=== PATIENT | male | born 1985 | race Caucasian/White ===

== ENCOUNTER 2017-08-28 17:58 | Emergency (ER) | payer BC ==
[2017-08-28 19:07] VITALS: O2SAT 98
--- NOTE | 2017-08-28 19:39 | ERPHSYRPT ---
- History of Present Illness Time Seen by Provider: 08/28/17 19:25 Source: patient Exam Limitations: no limitations Patient Subjective Stated Complaint: pt states he lacerated right lateral dorsal hand on apiece of glass this afternoon. Triage Nursing Assessment: pt pink, warm, dry. 2cm laceration noted to right dorsal lateral hand. bleeding controlled. superficial laceration. Physician History: This is a 32-year-old white male who arrives with complaint of a laceration to his dorsal right hand on a piece of glass from a mirror at work. He states this occurred at approximately 5:30 PM. Patient has no movement or sensory deficits he has approximately 2 cm laceration to the dorsal right hand. Past medical history negative Occurred: just prior to arrival (5:30 PM) Method of Injury: other (lacerated on piece of glass at work) Extremities Pain Location: hand: right Modifying Factors: Improves With: nothing Associated Symptoms: none Allergies/Adverse Reactions: No Known Drug Allergies Allergy (Unverified 08/28/17 19:06) Home Medications: No Reportable Medications [No Reported Medications] 08/28/17 [History] Unobtainable [Unobtainable] 08/28/17 [History] Hx Tetanus, Diphtheria Vaccination/Date Given: Yes (up to date) Hx Influenza Vaccination/Date Given: No Hx Pneumococcal Vaccination/Date Given: No Immunizations Up to Date: Yes - Review of Systems Constitutional: No Fever, No Chills Eyes: No Symptoms Ears, Nose, & Throat: No Symptoms Respiratory: No Cough, No Dyspnea Cardiac: No Chest Pain, No Edema, No Syncope Abdominal/Gastrointestinal: No Abdominal Pain, No Nausea, No Vomiting, No Diarrhea Genitourinary Symptoms: No Dysuria Musculoskeletal: No Back Pain, No Neck Pain Skin: Other (2 cm laceration dorsal right hand) Neurological: No Dizziness, No Focal Weakness, No Sensory Changes Psychological: No Symptoms Endocrine: No Symptoms All Other Systems: Reviewed and Negative - Past Medical History Pertinent Past Medical History: No - Past Surgical History Past Surgical History: No - Social History Smoking Status: Never smoker Exposure to second hand smoke: No Drug Use: none Patient Lives Alone: No - Nursing Vital Signs Nursing Vital Signs: Initial Vital Signs Temperature 98.0 F 08/28/17 18:47 Pulse Rate 88 08/28/17 18:47 Respiratory Rate 16 08/28/17 18:47 Blood Pressure 137/79 08/28/17 18:47 O2 Sat by Pulse Oximetry 97 08/28/17 18:47 Pain Scale Pain Intensity 0 - Physical Exam General Appearance: alert Eyes, Ears, Nose, Throat Exam: moist mucous membranes Neck Exam: non-tender, supple Cardiovascular/Respiratory Exam: chest non-tender, normal breath sounds, regular rate/rhythm, no respiratory distress Abdominal Exam: non-tender, No guarding Back Exam: normal inspection, No vertebral tenderness Shoulder Exam: normal inspection, non-tender, no evidence of injury, normal ROM Elbow/Forearm Exam: normal inspection, non-tender, no evidence of injury, normal ROM Wrist Exam: normal inspection, non-tender, no evidence of injury, normal ROM Hand Exam: normal ROM, laceration (2 cm laceration dorsal right hand) Neuro/Tendon Exam: normal sensation, normal motor functions Mental Status Exam: alert, oriented x 3, cooperative Skin Exam: other (2 cm laceration dorsal right hand) SpO2 Interpretation: normal (98%) SpO2: 98 Oxygen Delivery: Room Air - Course Nursing assessment & vital signs reviewed: Yes Ordered Tests: Active Orders 24 hr Category Date Time Status Wound Care STAT Care 08/28/17 19:28 Active Wound Care STAT Care 08/28/17 19:34 Active - Progress Progress: improved Progress Note: 08/28/17 19:37 32-year-old white male with 2 cm laceration to the dorsal right hand he states he cut the hand on a piece of glass at work patient has no foreign bodies on examination he has full range of motion to the right hand good capillary refill all fingers sensation intact to all fingers radial and ulnar pulses intact 2 over 4. Patient's tetanus is up-to-date with last tetanus 2 years ago. Will have nurse clean the wound and apply Dermabond. - Departure Time of Disposition: 19:38 Departure Disposition: Home Clinical Impression: Laceration of right hand Qualifiers: Encounter type: initial encounter Foreign body presence: without foreign body Qualified Code(s): S61.411A - Laceration without foreign body of right hand, initial encounter Condition: Fair Critical Care Time: No Referrals: [facility] [Primary Care Provider] - Instructions: Care for a Laceration After Repair, Laceration Repair With Dermabond Additional Instructions: Keep the area clean and dry. Do not apply traction to the area. Follow-up with your family doctor/company doctor or return if problems. Return for acute distress or for severe symptoms.
[2017-08-28 20:04] VITALS: BP 116/68; PULSE 78
== END 2017-08-28 20:05 | disposition home or self-care (01) ==
LOC: ED 17:58
PROC: 0HQFXZZ Repair Right Hand Skin, External Approach (ICD-10-PCS; principal; 2017-08-28)
DX: S61.411A Laceration without foreign body of right hand, initial encounter (principal); W25.XXXA Contact with sharp glass, initial encounter; Y92.64 Mine or pit as the place of occurrence of the external cause; Y99.0 Civilian activity done for income or pay
CPT/HCPCS: 12001; 99282; 99284

== ENCOUNTER 2020-05-25 05:41 | Emergency (ER) | payer BC ==
--- NOTE | 2020-05-25 06:17 | ERPHSYRPT ---
- History of Present Illness Historian: patient Exam Limitations: no limitations Patient Subjective Stated Complaint: "I've had flank pain and diarrhea since sunday. I've been up all night." Triage Nursing Assessment: 34 y/o white male presented alert et oriented x3 answering questions appropriately. Pt reported bilateral flank pain, nausea/vomiting, and diarrhea onset two days prior to arrival. Pt reported having a hida scan roughly 5 years ago resulting with poor function of the gallbladder without resulting surgery. Pt ambulated to the room without complications. Pupils 3mm reactive. oral mucosa pink/moist. EENT without complaints. Skin pink/warm/dry. Heart tones regular/clear. Lungs clear with adequate airflwo. Abdomen round and soft without palpable distent ion/organomegaly. Bowel sounds hyperactive in all quadrants. Radial pulses equal bilateral. Timing/Duration: day(s) (2) Activities at Onset: none Quality: fullness, pressure, sharpness Abdominal Pain Onset Location: RUQ, flank (Lateral) Modifying Factors: Improves With: vomiting Associated Symptoms: diarrhea, loss of appetite, nausea, vomiting Previous symptoms: same symptoms as today Hx Tetanus, Diphtheria Vaccination/Date Given: Yes (up to date) Hx Influenza Vaccination/Date Given: No Hx Pneumococcal Vaccination/Date Given: No <DAVID PATTON - Last Filed: 05/25/20 06:46> <TOM JOE - Last Filed: 05/25/20 13:02> - History of Present Illness Time Seen by Provider: 05/25/20 06:05 Physician History: This is a 34-year-old white male who presents with right-sided abdominal pain, bilateral flank pain, nausea vomiting diarrhea bloating belching gassy symptoms for the last 2 days. Patient had similar episodes several years ago and ultimately underwent HIDA scan which showed poorly functioning gallbladder. Patient never had the gallbladder removed. The last several years intermittently he would have minor episodes that were brief. His symptoms are becoming more constant. Patient has no known drug allergies and takes no medications daily. (DAVID PATTON) Allergies/Adverse Reactions: No Known Drug Allergies Allergy (Unverified 05/25/20 05:48) Travel Risk - International Travel Have you traveled outside of the country in past 3 weeks: No - Coronavirus Screening Are you exhibiting any of the following symptoms?: No Close contact with a COVID-19 positive Pt in past 14-21 Days: No <DAVID PATTON SalLore - Last Filed: 05/25/20 06:46> - Review of Systems Constitutional: No Symptoms Eyes: No Symptoms Ears, Nose, & Throat: No Symptoms Respiratory: No Symptoms Cardiac: No Symptoms Abdominal/Gastrointestinal: Abdominal Pain, Nausea, Vomiting, Diarrhea Genitourinary Symptoms: Flank Pain (Bilateral) Musculoskeletal: No Symptoms Skin: No Symptoms Neurological: No Symptoms Psychological: No Symptoms Endocrine: No Symptoms Hematologic/Lymphatic: No Symptoms, Easy Bruising All Other Systems: Reviewed and Negative <PATTONDAVID SalLore - Last Filed: 05/25/20 06:46> - Past Medical History Pertinent Past Medical History: No Neurological History: No Pertinent History ENT History: No Pertinent History Cardiac History: No Pertinent History Respiratory History: No Pertinent History Endocrine Medical History: No Pertinent History Musculoskeletal History: No Pertinent History GI Medical History: Gallbladder Disease History: No Pertinent History Psycho-Social History: No Pertinent History Male Reproductive Disorders: No Pertinent History - Past Surgical History Past Surgical History: No Neuro Surgical History: No Pertinent History Cardiac: No Pertinent History Respiratory: No Pertinent History Gastrointestinal: No Pertinent History Genitourinary: No Pertinent History Musculoskeletal: No Pertinent History Male Surgical History: No Pertinent History - Social History Smoking Status: Never smoker Exposure to second hand smoke: No Drug Use: none Patient Lives Alone: No <DAVID PATTON SalLore - Last Filed: 05/25/20 06:46> - Physical Exam General Appearance: no apparent distress, alert, anxiety Eye Exam: PERRL/EOMI, post op pupil defect (L) Ears, Nose, Throat Exam: normal ENT inspection, moist mucous membranes Neck Exam: normal inspection, non-tender, supple, full range of motion Respiratory Exam: normal breath sounds, lungs clear, airway intact, No chest tenderness, No respiratory distress Cardiovascular Exam: regular rate/rhythm, normal heart sounds, normal peripheral pulses Gastrointestinal/Abdomen Exam: soft, normal bowel sounds, tenderness (Right upper quadrant), No guarding Rectal Exam: deferred Back Exam: normal inspection, normal range of motion, CVA tenderness (Bilateral), No vertebral tenderness Extremity Exam: normal inspection, normal range of motion, pelvis stable Neurologic Exam: alert, oriented x 3, cooperative, traffic law attorney II-XII nml as tested, normal mood/affect, nml cerebellar function, nml station & gait, sensation nml Skin Exam: normal color, warm, dry Lymphatic Exam: adenopathy SpO2 Interpretation: normal SpO2: 95 O2 Delivery: Room Air <DAVID PATTON - Last Filed: 05/25/20 06:46> - Nursing Vital Signs Nursing Vital Signs: Initial Vital Signs Temperature 97.8 F 05/25/20 05:42 Pulse Rate 76 05/25/20 05:42 Respiratory Rate 16 05/25/20 05:42 Blood Pressure 134/97 05/25/20 05:42 O2 Sat by Pulse Oximetry 95 05/25/20 05:42 Pain Scale Pain Intensity 2 Ordered Tests: Active Orders 24 hr Category Date Time Status IV Insertion STAT Care 05/25/20 06:19 Completed ABDOMEN AND PELVIS W/0 CONTRAS [CT] Stat Exams 05/25/20 06:20 Completed GALLBLADDER [US] Stat Exams 05/25/20 08:56 Completed AMYLASE Stat Lab 05/25/20 06:15 Completed CBC W DIFF Stat Lab 05/25/20 06:19 Completed CMP Stat Lab 05/25/20 06:15 Completed LIPASE Stat Lab 05/25/20 06:15 Completed Lactic Acid Stat Lab 05/25/20 06:19 Completed UA W/RFX UR CULTURE Stat Lab 05/25/20 06:15 Completed Medication Summary Discontinued Medications Generic Name Dose Route Start Last Admin Trade Name Freq PRN Reason Stop Dose Admin Dicyclomine HCl 20 mg 05/25/20 10:00 05/25/20 08:58 Bentyl 20 Mg PO 06/24/20 09:59 20 mg QID JOSE E Administration Dicyclomine HCl Confirm 05/25/20 08:57 Bentyl 20 Mg Administered 05/25/20 08:58 Dose 20 mg .ROUTE .STK-MED ONE Fentanyl Citrate 100 mcg 05/25/20 08:07 05/25/20 08:11 Sublimaze 100 Mcg/2 Ml IV 05/25/20 08:08 100 mcg STAT ONE Administration Fentanyl Citrate Confirm 05/25/20 08:09 Sublimaze 100 Mcg/2 Ml Administered 05/25/20 08:10 Dose 100 mcg .ROUTE .STK-MED ONE Hydromorphone HCl 1 mg 05/25/20 06:19 05/25/20 06:27 Hydromorphone 1 Mg/Ml Ampule IV 05/25/20 06:20 1 mg STAT ONE Administration Hydromorphone HCl Confirm 05/25/20 06:26 Hydromorphone 1 Mg/Ml Ampule Administered 05/25/20 06:27 Dose 1 mg .ROUTE .STK-MED ONE Sodium Chloride 1,000 mls @ 999 mls/hr 05/25/20 06:19 05/25/20 07:43 Sodium Chloride 0.9% 1000 Ml IV 05/25/20 07:19 Infused .Q1H1M STA Infusion Sodium Chloride Confirm 05/25/20 06:26 Sodium Chloride 0.9% 1000 Ml Administered 05/25/20 06:27 Dose 1,000 mls @ ud .ROUTE .STK-MED ONE Ketorolac Tromethamine 30 mg 05/25/20 07:38 05/25/20 07:40 Toradol 30 Mg Injection IV 05/25/20 07:39 30 mg STAT ONE Administration Ketorolac Tromethamine Confirm 05/25/20 07:39 Toradol 30 Mg Injection Administered 05/25/20 07:40 Dose 30 mg .ROUTE .STK-MED ONE Ondansetron HCl 4 mg 05/25/20 06:19 05/25/20 06:27 Zofran 4 Mg/2 Ml Vial IV 05/25/20 06:20 4 mg STAT ONE Administration Ondansetron HCl Confirm 05/25/20 06:26 Zofran 4 Mg/2 Ml Vial Administered 05/25/20 06:27 Dose 4 mg .ROUTE .STK-MED ONE Lab/Rad Data: Laboratory Result Diagrams 05/25/20 06:19 05/25/20 06:15 Laboratory Results 05/25/20 05/25/20 05/25/20 Range/Units 06:19 06:19 06:15 WBC 8.6 (4.0-10.5) K/mm3 RBC 5.54 (4.1-5.6) M/mm3 Hgb 16.9 (12.5-18.0) gm/dl Hct 49.6 (42-50) % MCV 89.5 (78-100) fl MCH 30.5 (26-32) pg MCHC 34.1 (32-36) g/dl RDW 13.0 (11.5-14.0) % Plt Count 289 (150-450) K/mm3 MPV 10.6 (7.5-11.0) fl Gran % 56.2 (36.0-66.0) % Eos # (Auto) 0.82 H (0-0.5) Absolute Lymphs (auto) 2.54 (1.0-4.6) Absolute Monos (auto) 0.41 (0.0-1.3) Lymphocytes % 29.4 (24.0-44.0) % Monocytes % 4.7 (0.0-12.0) % Eosinophils % 9.5 H (0.00-5.0) % Basophils % 0.2 (0.0-0.4) % Absolute Granulocytes 4.85 (1.4-6.9) Basophils # 0.02 (0-0.4) Sodium (137-145) mmol/L Potassium (3.5-5.1) mmol/L Chloride (98-107) mmol/L Carbon Dioxide (22-30) mmol/L Anion Gap (5-15) MEQ/L BUN (9-20) mg/dL Creatinine (0.66-1.25) mg/dL Estimated GFR ML/MIN Glucose (74-106) mg/dL Lactic Acid 1.5 (0.4-2.0) Calcium (8.4-10.2) mg/dL Total Bilirubin (0.2-1.3) mg/dL AST (17-59) U/L ALT (0-50) U/L Alkaline Phosphatase (38-126) U/L Serum Total Protein (6.3-8.2) g/dL Albumin (3.5-5.0) g/dL Amylase (30-110) U/L Lipase (23-300) U/L Urine Color YELLOW (YELLOW) Urine Appearance CLEAR (CLEAR) Urine pH 5.0 (5-6) Ur Specific [place] 1.020 (1.005-1.025) Urine Protein NEGATIVE (Negative) Urine Ketones NEGATIVE (NEGATIVE) Urine Blood NEGATIVE (0-5) Leon/ul Urine Nitrite NEGATIVE (NEGATIVE) Urine Bilirubin NEGATIVE (NEGATIVE) Urine Urobilinogen NEGATIVE (0-1) mg/dL Ur Leukocyte Esterase NEGATIVE (NEGATIVE) Urine WBC (Auto) NONE (0-5) /HPF Urine RBC (Auto) NONE (0-2) /HPF U Epithel Cells (Auto) NONE (FEW) /HPF Urine Bacteria (Auto) NONE (NEGATIVE) /HPF Urine Mucus (Auto) SLIGHT (NEGATIVE) /HPF Urine Culture Reflexed NO (NO) Urine Glucose NEGATIVE (NEGATIVE) mg/dL 05/25/20 Range/Units 06:15 WBC (4.0-10.5) K/mm3 RBC (4.1-5.6) M/mm3 Hgb (12.5-18.0) gm/dl Hct (42-50) % MCV (78-100) fl MCH (26-32) pg MCHC (32-36) g/dl RDW (11.5-14.0) % Plt Count (150-450) K/mm3 MPV (7.5-11.0) fl Gran % (36.0-66.0) % Eos # (Auto) (0-0.5) Absolute Lymphs (auto) (1.0-4.6) Absolute Monos (auto) (0.0-1.3) Lymphocytes % (24.0-44.0) % Monocytes % (0.0-12.0) % Eosinophils % (0.00-5.0) % Basophils % (0.0-0.4) % Absolute Granulocytes (1.4-6.9) Basophils # (0-0.4) Sodium 139 (137-145) mmol/L Potassium 3.9 (3.5-5.1) mmol/L Chloride 101 (98-107) mmol/L Carbon Dioxide 28 (22-30) mmol/L Anion Gap 13.7 (5-15) MEQ/L BUN 11 (9-20) mg/dL Creatinine 0.78 (0.66-1.25) mg/dL Estimated GFR > 60.0 ML/MIN Glucose 111 H (74-106) mg/dL Lactic Acid (0.4-2.0) Calcium 9.6 (8.4-10.2) mg/dL Total Bilirubin 0.90 (0.2-1.3) mg/dL AST 36 (17-59) U/L ALT 53 H (0-50) U/L Alkaline Phosphatase 80 (38-126) U/L Serum Total Protein 8.9 H (6.3-8.2) g/dL Albumin 5.0 (3.5-5.0) g/dL Amylase 104 (30-110) U/L Lipase 70 (23-300) U/L Urine Color (YELLOW) Urine Appearance (CLEAR) Urine pH (5-6) Ur Specific [place] (1.005-1.025) Urine Protein (Negative) Urine Ketones (NEGATIVE) Urine Blood (0-5) Leon/ul Urine Nitrite (NEGATIVE) Urine Bilirubin (NEGATIVE) Urine Urobilinogen (0-1) mg/dL Ur Leukocyte Esterase (NEGATIVE) Urine WBC (Auto) (0-5) /HPF Urine RBC (Auto) (0-2) /HPF U Epithel Cells (Auto) (FEW) /HPF Urine Bacteria (Auto) (NEGATIVE) /HPF Urine Mucus (Auto) (NEGATIVE) /HPF Urine Culture Reflexed (NO) Urine Glucose (NEGATIVE) mg/dL <DAVID PATTON - Last Filed: 05/25/20 06:46> - Progress Progress: pain not gone completely Counseled pt/family regarding: lab results, diagnosis, need for follow-up, rad results <TOM JOE - Last Filed: 05/25/20 13:02> - Progress Progress Note: 05/25/20 06:46 Patient signed out to Dr. Cordova. He will be assumed and accepts care of this patient. I reviewed test and x-rays that were performed but results pending. (DAVID PATTON) 05/25/20 07:32 Assumed care of pt at 7AM. 34 yo wm w RUQ pain. Pt has a h/o RUQ pain due to a nonfunctioning gallbladder w HIDA scan demonstrating 5% function per hx. Pt scheduled to have cholo in past but did not go through the procedure. CT ab- pelvis w distended colon c/w diarrhea. Labs wnl. 05/25/20 07:40 Pain improved to a 6 w 1mg IV dilaudid that Dr. Patton gave him. US 2017 w normal gallbladder and HIDA w 5% activity. 05/25/20 08:53 RUQ US neg per tech. 100umg Fentanyl w mild improvement. 05/25/20 13:00 Pt given 20mg po Bentyl before discharge. (TOM JOE) <DAVID PATTON - Last Filed: 05/25/20 06:46> - Departure Departure Disposition: Home Critical Care Time: No <TOM JOE - Last Filed: 05/25/20 13:02> - Departure Clinical Impression: Abdominal pain in male Condition: Stable Referrals: KRISTEN RAMIREZ [Primary Care Provider] - Instructions: Acute Abdomen (Belly Pain), Adult (DC) Additional Instructions: Follow up with your family MD in 1-2 days Bentyl as needed for pain Return to ER for increasing pain or temperature greater than 100.5 Forms: Work/School Release Form Prescriptions: Dicyclomine HCl 20 mg [Bentyl 20 mg] 20 mg PO Q8H PRN PRN #14 tablet PRN Reason: Pain
[2020-05-25] MEDS ORDERED: Hydromorphone 1 mg/ml Ampule ONE (06:26)
[2020-05-25] MEDS ORDERED: Zofran 4 MG/2 ML VIAL ONE (06:26)
[2020-05-25] MEDS ORDERED: Sodium Chloride 0.9% 1000 ML 1,000 ML ONE (06:26)
[2020-05-25] MEDS: Hydromorphone 1 mg/ml Ampule IV ONE (06:27)
[2020-05-25] MEDS: Zofran 4 MG/2 ML VIAL IV ONE (06:27)
[2020-05-25] MEDS: Sodium Chloride 0.9% 1000 ML 1,000 ML IV STA (06:28)
[2020-05-25 06:36] LABS: Absolute Neutrophil Ct (ANC) 4.85 (1.4-6.9); BASOPHIL % 0.2 % (0.0-0.4); Basophil (Absolute #) 0.02 (0-0.4); Eosinophil % 9.5 % (0.00-5.0); Eosinophil (Absolute #) 0.82 (0-0.5); Hematocrit 49.6 % (42-50); Hemoglobin 16.9 gm/dl (12.5-18.0); Lymphocyte (Absolute #) 2.54 (1.0-4.6); Lymphocytes % 29.4 % (24.0-44.0); Mean Cell Volume 89.5 fl (78-100); Mean Corpuscular Hemoglobin 30.5 pg (26-32); Mean Corpuscular Hgb Concent. 34.1 g/dl (32-36); Mean Platelet Volume 10.6 fl (7.5-11.0); Monocyte (Absolute #) 0.41 (0.0-1.3); Monocytes % 4.7 % (0.0-12.0); Neutrophil % 56.2 % (36.0-66.0); Platelet Count 289 K/mm3 (150-450); Red Blood Count 5.54 M/mm3 (4.1-5.6); White Blood Count 8.6 K/mm3 (4.0-10.5)
[2020-05-25 06:42] LABS: Appearance CLEAR (CLEAR); Bilirubin NEGATIVE (NEGATIVE); Blood NEGATIVE Ery/ul (0-5); Glucose NEGATIVE (NEGATIVE); Ketones NEGATIVE (NEGATIVE); Leukocyte Esterase NEGATIVE (NEGATIVE); Mucus SLIGHT /HPF (NEGATIVE); Nitrite NEGATIVE (NEGATIVE); Protein,Urine Dip NEGATIVE (Negative); Urobilinogen NEGATIVE mg/dL (0-1)
[2020-05-25 06:49] LABS: ALKALINE PHOSPHATASE 80 U/L (38-126); AMYLASE 104 U/L (30-110); ANION GAP 13.7 MEQ/L (5-15); BLOOD UREA NITROGEN 11 mg/dL (9-20); CHLORIDE 101 mmol/L (98-107); Calcium 9.6 mg/dL (8.4-10.2); Carbon Dioxide 28 mmol/L (22-30); Creatinine 1 0.78 mg/dL (0.66-1.25); Glucose 111 mg/dL (74-106); LIPASE 70 U/L (23-300); Potassium 3.9 mmol/L (3.5-5.1); SGOT/AST 36 U/L (17-59); SGPT/ALT 53 U/L (0-50); SODIUM 139 mmol/L (137-145); Total Protein 8.9 g/dL (6.3-8.2)
[2020-05-25] MEDS ORDERED: TORAdol 30 mg Injection ONE (07:39)
[2020-05-25] MEDS: TORAdol 30 mg Injection IV ONE (07:40)
[2020-05-25] MEDS ORDERED: SUBLIMAZE 100 MCG/2 ML ONE (08:09)
[2020-05-25] MEDS: SUBLIMAZE 100 MCG/2 ML IV ONE (08:11)
--- NOTE | 2020-05-25 08:37 | XRAY ---
Indication: Bilateral flank pain, nausea, vomiting, and diarrhea. Multiple contiguous axial images obtained through the abdomen and pelvis without contrast as ordered. Comparison: None Lung bases demonstrates minimal bilateral dependent atelectasis without infiltrate or effusion. Heart is not enlarged. Stomach is distended with food/fluid. Noncontrasted stomach and bowel loops appear nonobstructed. Normal appendix. Minimal fluid distended colon with fluid leveling throughout favoring clinically reported diarrhea. A few sigmoid diverticulosis. No free fluid/air. Remaining liver, gallbladder, pancreas, spleen, adrenal glands, kidneys, ureters, bladder, and aorta appear unremarkable for noncontrast exam. Osseous structures intact. No ventral or inguinal hernias. Impression: 1. Colonic diarrhea and minimal sigmoid diverticulosis. 2. Remaining CT abdomen/pelvis without contrast exam is negative.
[2020-05-25] MEDS ORDERED: BENTYL 20 MG ONE (08:57)
[2020-05-25] MEDS: BENTYL 20 MG PO SCH (08:58)
[2020-05-25 09:02] VITALS: BP 132/86; PULSE 67; O2SAT 97
--- NOTE | 2020-05-25 09:14 | XRAY ---
Indication: Right upper quadrant pain. Two-dimensional gallbladder sonogram performed. Comparison: January 29, 2017. Pancreas not well-seen due to overlying bowel gas. Gallbladder normally distended again without gallstones, wall thickening, or pericholecystic fluid. Common bile duct measures 3.7 mm. No intrahepatic biliary distention. Stable fatty echogenic liver without focal solid/cystic mass or ascites. Remaining visualized right kidney sonographically normal measuring 11.3 cm in length. Impression: Pancreas obscured. Stable fatty liver in otherwise negative gallbladder sonogram.
== END 2020-05-25 09:33 | disposition home or self-care (01) ==
LOC: ED 05:41
DX: R10.9 Unspecified abdominal pain (principal)
CPT/HCPCS: 36000; 36415; 74176; 76705; 80053; 81001; 82150; 83605; 83690; 85025; 96360; 96374; 96375; 99285; J1170; J1885; J2405; J3010; A9270-GY

== ENCOUNTER 2020-06-21 09:24 | Day surgery (SDC) | payer BC ==
[~2020-06-21 09:24] MED LIST: Lactated Ringers 1,000 ML IV ONE; Sensorcaine 0.25% 10 ML ONE
--- NOTE | 2020-06-21 09:27 | HP ---
DATE OF SURGERY: 06/21/2020 HISTORY OF PRESENT ILLNESS: The patient is a 34 year old with right upper quadrant pain radiating to the back, felt to be related to ingestion of spicy food. Some vomiting, some diarrhea, some belching. Ultrasound no stones. HIDA ejection fraction 22%. No jaundice. No liver problems. PAST MEDICAL HISTORY: Gallbladder disease. PAST SURGICAL HISTORY: No prior abdominal surgery. MEDICATIONS: None on a regular basis. ALLERGIES: NKDA. SOCIAL HISTORY: No smoking or alcohol use. REVIEW OF SYSTEMS: Fourteen systems reviewed. No chest pain or palpitations. Other systems negative or noncontributory as above and per preadmission questionnaire. PHYSICAL EXAMINATION: GENERAL: No acute distress. HEENT: Sclerae nonicteric. NECK: No JVD. CHEST: Equal excursion, nonlabored breathing. CVS: Regular rate and rhythm. ABDOMEN: Soft. No peritoneal signs. EXTREMITIES: No significant edema. NEURO: Alert, oriented, moving extremities symmetrically. No gross motor deficits noted. IMPRESSION: Symptomatic biliary dyskinesia, symptomatic biliary colic, acute exacerbation of chronic cholecystitis. I feel the patient will benefit from cholecystectomy. Risks and benefits explained in detail including but not limited to bleeding or infection, risk of trocar injury or hernia, risk of bowel, bladder or blood vessel injury, risk of bile leak, bile duct injury, retained stone or sludge possibly requiring further procedure either open or ERCP, general risk of anesthesia, deep venous thrombosis, pulmonary embolism, pneumonia, perioperative risk of aches, pains, bloating, constipation and/or loose stools possibly even chronic in nature. He understands and agrees to the planned procedure, will proceed with outpatient laparoscopic cholecystectomy with possible open.
[2020-06-21] MEDS ORDERED: DIPRIVAN 200 MG/20 ML IV ONE (09:47)
[2020-06-21] MEDS ORDERED: Versed 2 MG/2 ML Injection ONE (09:47)
[2020-06-21] MEDS ORDERED: SUBLIMAZE 250 MCG/5 ML ONE (09:47)
[2020-06-21] MEDS ORDERED: Quelicin Fliptop 200 MG/10 ML ONE (09:47)
[2020-06-21] MEDS ORDERED: Zemuron 100 MG/10 ML ONE ×2 (09:47→11:49)
[2020-06-21] MEDS ORDERED: Lactated Ringers 1,000 ML IV SCH (10:00)
[2020-06-21] MEDS ORDERED: Lactated Ringers 1,000 ML IV ONE (10:00)
[2020-06-21] MEDS ORDERED: MEFOXIN 2 GM PREMIX** 2 GM/50 ML ML IV SCH (10:00)
[2020-06-21] MEDS ORDERED: CEFAZOLIN 2 GM-D5W BAG** 2 GM/50 ML ML IV ONE (10:03)
[2020-06-21] MEDS ORDERED: MEFOXIN 2 GM PREMIX** 2 GM/50 ML ML IV ONE (10:24)
[2020-06-21] MEDS ORDERED: BRIDION 200MG/2ML IV ONE (11:52)
[2020-06-21] MEDS ORDERED: Zofran 4 MG/2 ML VIAL ONE (11:52)
[2020-06-21] MEDS ORDERED: TORAdol 30 mg Injection ONE ×2 (12:04→12:44)
[2020-06-21] MEDS ORDERED: Compazine 10 MG/2 ML ONE (12:12)
[2020-06-21] MEDS ORDERED: SUBLIMAZE 100 MCG/2 ML ONE (12:12)
[2020-06-21 14:43] VITALS: O2SAT 93
[2020-06-21 15:38] VITALS: BP 139/72; PULSE 94
--- NOTE | 2020-06-22 09:13 | OP ---
SURGERY DATE/TIME: 06/21/2020 1112 PREOPERATIVE DIAGNOSIS: Symptomatic biliary colic, biliary dyskinesia, acute exacerbation of chronic cholecystitis. POSTOPERATIVE DIAGNOSIS: Symptomatic biliary colic, biliary dyskinesia, acute exacerbation of chronic cholecystitis. PROCEDURE: Laparoscopic cholecystectomy. SURGEON: Dr. Jimmy Wilkes. ANESTHESIA: General. ESTIMATED BLOOD LOSS: Minimal. INDICATIONS: As noted above. Risks and benefits explained in detail but not limited to and consent obtained. DESCRIPTION OF PROCEDURE AND FINDINGS: The patient was taken to the operating room. General anesthesia induced. Abdomen prepped and draped in the usual sterile fashion. After official time out and no disagreement with planned procedure, a transverse incision made at the supraumbilical area. Fascia grasped and pulled upward. Veress needle inserted and tested with saline. Pneumoperitoneum accomplished insufflating opening pressure of 0-15. An 11 mm bladeless port and camera inserted without difficulty followed by two - 5 mm right upper quadrant ports and 5 mm mid epigastric port. The gallbladder grasped. It had extensive chronic inflammatory reaction. Dissected posterior, lateral to anterior fashion. Main cystic artery isolated directly on the gallbladder wall. It was clipped and divided in the usual fashion, this opened up the angle. The cystic duct infundibular junction slowly and carefully well skeletonized until critical view obtained both anteriorly and posteriorly. Again this had extensive inflammatory reaction on it but was able to be isolated until critical view obtained anteriorly and posteriorly. Once this was accomplished the cystic duct was clipped x3 and divided in usual fashion. Gallbladder slowly and carefully dissected free from its dense attachment to liver bed. A clip on the gallbladder side fell off once requiring reclipping and spitting just a small amount of bile. There is no gross evidence of any stone spillage. Copious amount of irrigation irrigating clear. The liver bed re-inspected. Clips noted in place cystic duct and cystic artery stumps. No signs of any active bleeding or bile leakage. It was felt there was no benefit from drain placement. Gallbladder released from final attachment to the anterior edge of the liver. Gallbladder grasped, pulled up and out the supraumbilical port site and passed off. Ports replaced. Copious amount of irrigation accomplished lateral to the liver and subhepatic space irrigating until clear. Liver bed re-inspected. Clips noted in place cystic duct and cystic artery stumps. No signs of any active bleeding or bile leakage. It was felt there was no benefit in drain placement. At this point the fascial defect 10/11 site closed with puncture closure device with #1 Vicryl under direct vision of the camera. Pneumoperitoneum decompressed. The wound is irrigated out. Skin incisions closed with 4-0 Vicryl. 0.25% Marcaine local had been injected along the skin incision fascial defect at the beginning of the procedure.
== END 2020-06-21 15:30 | disposition home or self-care (01) ==
LOC: SDC 09:24
PROVIDERS: ATTEND Surgery
DX: K80.42 Calculus of bile duct with acute cholecystitis without obstruction (principal); K82.8 Other specified diseases of gallbladder
CPT/HCPCS: J0330; J0690; J0694; J1885; J2250; J2405; J2704; J3010

== ENCOUNTER 2020-06-24 15:43 | Emergency (ER) | payer BC ==
[2020-06-24] MEDS ORDERED: Sodium Chloride 0.9% 1000 ML 1,000 ML IV STA (16:11)
[2020-06-24] MEDS ORDERED: Sodium Chloride 0.9% 1000 ML 1,000 ML ONE (16:12)
[2020-06-24 16:19] LABS: Absolute Neutrophil Ct (ANC) 2.75 (1.4-6.9); BASOPHIL % 0.4 % (0.0-0.4); Basophil (Absolute #) 0.03 (0-0.4); Eosinophil % 13.9 % (0.00-5.0); Eosinophil (Absolute #) 0.94 (0-0.5); Hemoglobin 15.2 gm/dl (12.5-18.0); Lymphocytes % 39.8 % (24.0-44.0); Mean Cell Volume 90.7 fl (78-100); Mean Corpuscular Hemoglobin 30.6 pg (26-32); Mean Corpuscular Hgb Concent. 33.8 g/dl (32-36); Mean Platelet Volume 10.1 fl (7.5-11.0); Monocyte (Absolute #) 0.36 (0.0-1.3); Monocytes % 5.3 % (0.0-12.0); Neutrophil % 40.6 % (36.0-66.0); Platelet Count 270 K/mm3 (150-450); Red Blood Count 4.96 M/mm3 (4.1-5.6); Red Cell Distribution Width 13.2 % (11.5-14.0); White Blood Count 6.8 K/mm3 (4.0-10.5)
--- NOTE | 2020-06-24 16:24 | ERPHSYRPT ---
- History of Present Illness Time Seen by Provider: 06/24/20 16:10 Historian: patient Exam Limitations: no limitations Patient Subjective Stated Complaint: Chest pain Triage Nursing Assessment: Patient ambulated back to ED and transferred to bed per self. Patient A+O X3. Patient's skin pink, warm and dry. Patient complains of intermittent chest pain 4/10 today and paula calf pain. Patient had recent gallbladder surgery on Sunday. Patient called surgeon who wanted him worked up for DVT. No swelling noted to paula calfs. Patient complains of constant cramping in calves. Lungs clear a/p paula. Physician History: Patient is a 34-year-old male who presents to our ED as a referral from his general surgeon. Patient has been experiencing intermittent calf cramping and chest pain for the past day. Patient had a cholecystectomy performed on Sunday, 3 days ago. Patient called her surgeon who advised him to come to our ED to rule out venous thromboembolism. No history of DVT or PE. No nausea vomiting or diaphoresis. Symptoms are constant. Symptoms are mild to moderate in intensity. Patient voices no other complaints or concerns at this time. Timing/Duration: today Activities at Onset: none Quality: aching, cramping, stabbing Location: other (Pain in chest and bilateral calfs.) Chest Pain Radiation: no radiation Severity of Pain-Max: moderate Severity of Pain-Current: mild Modifying Factors: Improves With: nothing Associated Symptoms: No nausea, No palpitations, No heartburn, No abdominal pain, No shortness of breath, No cough, No hurts to breathe, No diaphoresis, No fever, No weakness, No swelling/lump in chest, No syncope, No dizziness, No edema Nitro Today/Relief: no nitro taken today Aspirin Treatment Today: no aspirin today Allergies/Adverse Reactions: No Known Drug Allergies Allergy (Verified 06/24/20 16:02) Hx Tetanus, Diphtheria Vaccination/Date Given: Yes (up to date) Hx Influenza Vaccination/Date Given: No Hx Pneumococcal Vaccination/Date Given: No Immunizations Up to Date: Yes Travel Risk - International Travel Have you traveled outside of the country in past 3 weeks: No - Coronavirus Screening Are you exhibiting any of the following symptoms?: No Close contact with a COVID-19 positive Pt in past 14-21 Days: No - Review of Systems Constitutional: No Symptoms, No Fever, No Chills Eyes: No Symptoms Ears, Nose, & Throat: No Symptoms Respiratory: No Symptoms, No Cough, No Dyspnea Cardiac: No Symptoms, No Chest Pain, No Edema, No Syncope Abdominal/Gastrointestinal: No Symptoms, No Abdominal Pain, No Nausea, No Vomiting, No Diarrhea Genitourinary Symptoms: No Symptoms, No Dysuria Musculoskeletal: No Symptoms, No Back Pain, No Neck Pain Skin: No Symptoms, No Rash Neurological: No Symptoms, No Dizziness, No Focal Weakness, No Sensory Changes Psychological: No Symptoms Endocrine: No Symptoms Hematologic/Lymphatic: No Symptoms Immunological/Allergic: No Symptoms All Other Systems: Reviewed and Negative - Past Medical History Pertinent Past Medical History: No Neurological History: No Pertinent History ENT History: No Pertinent History Cardiac History: No Pertinent History Respiratory History: No Pertinent History Endocrine Medical History: No Pertinent History Musculoskeletal History: No Pertinent History GI Medical History: Gallbladder Disease History: No Pertinent History Psycho-Social History: No Pertinent History Male Reproductive Disorders: No Pertinent History - Past Surgical History Past Surgical History: Yes Neuro Surgical History: No Pertinent History Cardiac: No Pertinent History Respiratory: No Pertinent History Gastrointestinal: Cholecystectomy Genitourinary: No Pertinent History Musculoskeletal: No Pertinent History Male Surgical History: No Pertinent History Other Surgical History: EGD,veins stripped lower legs - Social History Smoking Status: Never smoker Exposure to second hand smoke: No Drug Use: none Patient Lives Alone: No - Nursing Vital Signs Nursing Vital Signs: Initial Vital Signs Pulse Rate 65 06/24/20 16:03 Respiratory Rate 18 06/24/20 16:03 Blood Pressure 154/87 06/24/20 16:03 O2 Sat by Pulse Oximetry 99 06/24/20 16:03 Pain Scale Pain Intensity 2 - Physical Exam General Appearance: no apparent distress, alert Eye Exam: PERRL/EOMI, eyes nml inspection Ears, Nose, Throat Exam: normal ENT inspection, moist mucous membranes Neck Exam: normal inspection, non-tender, supple, full range of motion Respiratory Exam: normal breath sounds, lungs clear, No respiratory distress Cardiovascular Exam: regular rate/rhythm, normal heart sounds Gastrointestinal/Abdomen Exam: soft, No tenderness, No mass Back Exam: normal inspection, No CVA tenderness, No vertebral tenderness Extremity Exam: normal inspection, normal range of motion Neurologic Exam: alert, oriented x 3, cooperative, normal mood/affect, sensation nml, No motor deficits Skin Exam: normal color, warm, dry SpO2 Interpretation: normal SpO2: 97 O2 Delivery: Room Air - Course Nursing assessment & vital signs reviewed: Yes EKG Interpreted by Me: RATE (61), Sinus Rhythm, NORMAL AXIS, NORMAL INTERVALS - CT Exams Chest CT Interpretation: Tele-radiologist Report (Negative for PE. Small pneumomediastinum due to postoperative as patient had cholecystectomy on Sunday.) Ordered Tests: Active Orders 24 hr Category Date Time Status Watershed Coordinator STAT Care 06/24/20 16:05 Active EKG-ER Only STAT Care 06/24/20 16:05 Active IV Insertion STAT Care 06/24/20 16:05 Active Pulse Oximetry (ED) STAT Care 06/24/20 16:05 Active CHEST WITH CONTRAST [CT] Stat Exams 06/24/20 16:51 Taken VENOUS BILATERAL EXTREMITY [US] Stat Exams 06/24/20 16:06 Taken CBC W DIFF Stat Lab 06/24/20 16:17 Completed CMP Stat Lab 06/24/20 16:17 Completed D-DIMER QUANTITATIVE Stat Lab 06/24/20 16:17 Completed TROPONIN Q3H Lab 06/24/20 16:17 Completed TROPONIN Q3H Lab 06/24/20 19:15 Ordered TROPONIN Q3H Lab 06/24/20 22:15 Ordered TROPONIN Q3H Lab 06/25/20 01:15 Ordered TROPONIN Q3H Lab 06/25/20 04:15 Ordered Medication Summary Discontinued Medications Generic Name Dose Route Start Last Admin Trade Name Freq PRN Reason Stop Dose Admin Sodium Chloride 1,000 mls @ 999 mls/hr 06/24/20 16:11 06/24/20 17:30 Sodium Chloride 0.9% 1000 Ml IV 06/24/20 17:11 Infused .Q1H1M STA Infusion Sodium Chloride Confirm 06/24/20 16:12 Sodium Chloride 0.9% 1000 Ml Administered 06/24/20 16:13 Dose 1,000 mls @ ud .ROUTE .STK-MED ONE Lab/Rad Data: Laboratory Result Diagrams 06/24/20 16:17 06/24/20 16:17 Laboratory Results 06/24/20 06/24/20 06/24/20 Range/Units 16:17 16:17 16:17 WBC (4.0-10.5) K/mm3 RBC (4.1-5.6) M/mm3 Hgb (12.5-18.0) gm/dl Hct (42-50) % MCV (78-100) fl MCH (26-32) pg MCHC (32-36) g/dl RDW (11.5-14.0) % Plt Count (150-450) K/mm3 MPV (7.5-11.0) fl Gran % (36.0-66.0) % Eos # (Auto) (0-0.5) Absolute Lymphs (auto) (1.0-4.6) Absolute Monos (auto) (0.0-1.3) Lymphocytes % (24.0-44.0) % Monocytes % (0.0-12.0) % Eosinophils % (0.00-5.0) % Basophils % (0.0-0.4) % Absolute Granulocytes (1.4-6.9) Basophils # (0-0.4) D-Dimer 633 H* (215-500) ng/mL Sodium 139 (137-145) mmol/L Potassium 3.6 (3.5-5.1) mmol/L Chloride 102 (98-107) mmol/L Carbon Dioxide 27 (22-30) mmol/L Anion Gap 13.3 (5-15) MEQ/L BUN 15 (9-20) mg/dL Creatinine 0.90 (0.66-1.25) mg/dL Estimated GFR > 60.0 ML/MIN Glucose 107 H (74-106) mg/dL Calcium 9.5 (8.4-10.2) mg/dL Total Bilirubin 0.80 (0.2-1.3) mg/dL AST 54 (17-59) U/L ALT 63 H (0-50) U/L Alkaline Phosphatase 69 (38-126) U/L Troponin I < 0.012 (0.000-0.034) ng/mL Serum Total Protein 8.3 H (6.3-8.2) g/dL Albumin 4.7 (3.5-5.0) g/dL 06/24/20 Range/Units 16:17 WBC 6.8 (4.0-10.5) K/mm3 RBC 4.96 (4.1-5.6) M/mm3 Hgb 15.2 (12.5-18.0) gm/dl Hct 45.0 (42-50) % MCV 90.7 (78-100) fl MCH 30.6 (26-32) pg MCHC 33.8 (32-36) g/dl RDW 13.2 (11.5-14.0) % Plt Count 270 (150-450) K/mm3 MPV 10.1 (7.5-11.0) fl Gran % 40.6 (36.0-66.0) % Eos # (Auto) 0.94 H (0-0.5) Absolute Lymphs (auto) 2.70 (1.0-4.6) Absolute Monos (auto) 0.36 (0.0-1.3) Lymphocytes % 39.8 (24.0-44.0) % Monocytes % 5.3 (0.0-12.0) % Eosinophils % 13.9 H (0.00-5.0) % Basophils % 0.4 (0.0-0.4) % Absolute Granulocytes 2.75 (1.4-6.9) Basophils # 0.03 (0-0.4) D-Dimer (215-500) ng/mL Sodium (137-145) mmol/L Potassium (3.5-5.1) mmol/L Chloride (98-107) mmol/L Carbon Dioxide (22-30) mmol/L Anion Gap (5-15) MEQ/L BUN (9-20) mg/dL Creatinine (0.66-1.25) mg/dL Estimated GFR ML/MIN Glucose (74-106) mg/dL Calcium (8.4-10.2) mg/dL Total Bilirubin (0.2-1.3) mg/dL AST (17-59) U/L ALT (0-50) U/L Alkaline Phosphatase (38-126) U/L Troponin I (0.000-0.034) ng/mL Serum Total Protein (6.3-8.2) g/dL Albumin (3.5-5.0) g/dL - Progress Progress: improved Air Movement: good Progress Note: 06/24/20 18:47 Patient reassessed. He is well. Vital stable. Work-up negative for PE and DVT. Patient has no other complaints at this time will discharge home. She agrees to follow-up with his surgeon as scheduled. Blood Culture(s) Obtained: No Antibiotics given: No Counseled pt/family regarding: lab results, diagnosis, need for follow-up, rad results - Departure Departure Disposition: Home Clinical Impression: Bilateral calf pain, Post-op pain Condition: Stable Critical Care Time: No Referrals: KRISTEN RAMIREZ [Primary Care Provider] - Instructions: Dehydration, Adult (DC) Additional Instructions: Discharge/Care Plan RAMÓN STARK was seen on 06/24/20 in the Emergency Room. The patient was counseled regarding Diagnosis,Lab results, Imaging studies, need for follow up and when to return to the Emergency Room. Prescriptions given: Discharge Note I have spoken with the patient and/or caregivers. I have explained the patient's condition, diagnosis and treatment plan based on the information available to me at this time. I have answered the patient's and/or caregiver's questions and addressed any concerns. The patient and/or caregivers have as good understanding of the patient's diagnosis, condition and treatment plan as can be expected at this point. The vital signs have been stable. The patient's condition is stable and appropriate for discharge from the emergency department. The patient will pursue further outpatient evaluation with the primary care physician or other designated or consulting physician as outlined in the discharge instructions. The patient and/or caregivers are agreeable to this plan of care and follow-up instructions have been explained in detail. The patient and/or caregivers have received these instruction. The patient/and or caregivers are aware that any significant change in condition or worsening of symptoms should prompt an immediate return to this or the closest emergency department or call 911.
[2020-06-24 16:46] LABS: ALBUMIN 4.7 g/dL (3.5-5.0); ALKALINE PHOSPHATASE 69 U/L (38-126); ANION GAP 13.3 MEQ/L (5-15); BLOOD UREA NITROGEN 15 mg/dL (9-20); CHLORIDE 102 mmol/L (98-107); Calcium 9.5 mg/dL (8.4-10.2); Carbon Dioxide 27 mmol/L (22-30); EST GLOMERULAR FILTRATION RATE > 60.0 ML/MIN; Glucose 107 mg/dL (74-106); Potassium 3.6 mmol/L (3.5-5.1); SGOT/AST 54 U/L (17-59); SGPT/ALT 63 U/L (0-50); SODIUM 139 mmol/L (137-145); Total Protein 8.3 g/dL (6.3-8.2)
[2020-06-24 18:39] VITALS: O2SAT 97
[2020-06-24 18:45] VITALS: BP 131/89; PULSE 76
--- NOTE | 2020-06-24 19:03 | XRAY ---
Exam: Bilateral lower extremity duplex Doppler venous ultrasound examination from 06/24/2020. Comparison: None. Indication: Chest pain and calf pain 4 days status post laparoscopic cholecystectomy. Technique: Longitudinal and transverse grayscale images were obtained as well as color flow images. Doppler tracings were obtained of access services representative venous segments of both lower extremities without and with augmentation. Findings: Within the right lower extremity, normal color blood flow and Doppler signal without and with augmentation were seen within access services representative segments of the common femoral vein, proximal greater saphenous vein, proximal, mid, and distal superficial femoral vein, profunda femoral vein, popliteal vein, and the distal posterior tibial veins. Normal transducer compression was seen within the right common femoral vein, superficial femoral vein, popliteal vein, and distal posterior tibial veins. A 1.5 cm in length normal-appearing lymph node is seen within the right groin. Within the left lower extremity, I again see normal color blood flow and Doppler signal without and with augmentation throughout the deep venous segments of the left lower extremity. Normal transducer compression was seen within the left common femoral vein, superficial femoral vein, popliteal vein, and distal posterior tibial veins. I again note some postinflammatory lymph nodes within the left groin. No abnormal-appearing lymph node is seen. Impression: 1. No evidence of deep venous thrombosis is seen within either lower extremity. 2. Neither do I see evidence of superficial venous thrombosis within either greater saphenous vein in the proximal thighs. 3. Some postinflammatory lymph nodes are seen within each groin.
--- NOTE | 2020-06-25 08:48 | XRAY ---
Exam: CT of the chest with IV contrast, per PE protocol from 06/24/2020. CTDI: 27.10 mGy Comparison: None. Indication: 34-year-old male with chest pain, rule out pulmonary embolus. The patient is 4 days status post laparoscopic cholecystectomy. Technique: Post-IV contrast axial images were obtained through the chest using 100 cc of Isovue-370 contrast material, per protocol. Reconstructed coronal and sagittal images were created and reviewed. Findings: The pulmonary arteries enhance well revealing no filling defects suggest clot/emboli. The thoracic aorta reveals no aneurysm or dissection. The mediastinum and hilar structures reveal no pathological lymphadenopathy. The distal trachea and major central branching bronchi appear open on the lung window images. However, there is evidence of pneumomediastinum anteriorly in the midline and anteriorly toward the left. I also see some bubbles of free intraperitoneal air underneath the left hemidiaphragm and a small amount of free intraperitoneal air anteriorly in the upper abdomen. These findings may be due to the patient's recent laparoscopic cholecystectomy. Correlate clinically to exclude GI perforation. The peripheral lungs reveals some mild bilateral patchy posterior dependent atelectatic changes. There is some minimal atelectasis anterior laterally at the left lung base as well. No confluent air space infiltrates, suspicious soft tissue lung nodules, pneumothorax, or pleural effusion is seen. There appears to be minimal bilateral symmetric gynecomastia. The upper abdomen reveals some surgical clips within the subhepatic space consistent with the patient's recent cholecystectomy. I again see a small amount of scattered free intraperitoneal air within the upper abdomen. I cannot exclude some mild fatty infiltration within the liver. The adrenal glands appear unremarkable. Impression: 1. I see no evidence of acute pulmonary embolism or thoracic aortic aneurysm/dissection. 2. I note a small amount of pneumomediastinum anteriorly and anteriorly toward the left. This may be due to the patient's recent laparoscopic surgery. 3. I also see a small amount of free intraperitoneal air anteriorly within the upper abdomen and underneath the left hemidiaphragm. This is likely due to the patient's recent laparoscopic cholecystectomy performed 4 days ago. GI perforation is another theoretical consideration, but considered less likely in light of the recent surgical history. 4. Bilateral patchy posterior dependent atelectasis. There is also minimal focal atelectasis anterior laterally at the left lung base. 5. Minimal bilateral gynecomastia and questionable mild fatty infiltration of the liver. I also see evidence surgical clips within the subhepatic space consistent with cholecystectomy.
== END 2020-06-24 18:50 | disposition home or self-care (01) ==
LOC: ED 15:43
DX: M79.662 Pain in left lower leg (principal); M79.661 Pain in right lower leg; G89.18 Other acute postprocedural pain; R07.9 Chest pain, unspecified
CPT/HCPCS: 36000; 36415; 71260; 80053; 84484; 85025; 85379; 93005; 93041; 93970; 94760; 96360; 99284

== ENCOUNTER 2021-04-08 06:45 | Day surgery (SDC) | payer OTHER ==
[2021-04-08] MEDS ORDERED: Lactated Ringers 1,000 ML IV ONE (06:55)
[2021-04-08] MEDS ORDERED: CEFAZOLIN 2 GM-D5W BAG** 2 GM/50 ML ML IV SCH (07:00)
[2021-04-08] MEDS ORDERED: Lactated Ringers 1,000 ML IV SCH (07:00)
[2021-04-08] MEDS ORDERED: XYLOCAINE 1% HCL 20 ML MDV ONE (07:13)
[2021-04-08] MEDS ORDERED: BUPIVACAINE 0.5% VIAL IJ ONE (07:14)
[2021-04-08] MEDS ORDERED: Naropin 0.5% 30 ML VIAL ONE (08:06)
[2021-04-08] MEDS ORDERED: Zofran 4 MG/2 ML VIAL ONE (08:06)
[2021-04-08] MEDS ORDERED: TORAdol 30 mg Injection ONE (08:06)
[2021-04-08] MEDS ORDERED: SUBLIMAZE 100 MCG/2 ML ONE (08:06)
[2021-04-08] MEDS ORDERED: DIPRIVAN 200 MG/20 ML IV ONE (08:06)
[2021-04-08] MEDS ORDERED: Decadron 4 MG INJ ONE ×2 (08:06→10:07)
[2021-04-08] MEDS ORDERED: Versed 2 MG/2 ML Injection ONE (08:06)
[2021-04-08] MEDS ORDERED: Xylocaine-Mpf 2% 5 Ml Vial ONE (08:06)
[2021-04-08] MEDS ORDERED: EPINEPHRINE 1MG/ML AMP ONE (08:06)
[2021-04-08] MEDS ORDERED: Zemuron 100 MG/10 ML ONE (08:21)
[2021-04-08] MEDS ORDERED: BRIDION 200MG/2ML IV ONE (10:07)
--- NOTE | 2021-04-08 10:40 | XRAY ---
Indication: Right ankle os trigonum excision and flexor hallucis longus tenosynovectomy.. Intraoperative fluoroscopy provided for 3 minutes 43 seconds. 3 digital spot images demonstrates metallic localizer tip posterior to talocalcaneal articulation. Correlate with intraoperative findings/report.
--- NOTE | 2021-04-08 12:03 | OP ---
SURGERY DATE/TIME: 04/08/2021 0815 PREOPERATIVE DIAGNOSES: 1) Painful right ankle. 2) Posterior ankle impingement syndrome. 3) Os trigonum. 4) Flexor hallucis longus tenosynovitis. POSTOPERATIVE DIAGNOSES: 1) Painful right ankle. 2) Posterior ankle impingement syndrome. 3) Os trigonum. 4) Flexor hallucis longus tenosynovitis. PROCEDURE: Excision of the os trigonum and flexor hallucis longus tenosynovectomy. SURGEON: Efren Olmedo DPM. MANAGER AEROSPACE: None. ANESTHESIA: General plus popliteal block. See anesthesia notes for details. HEMOSTASIS: Thigh tourniquet set to 350 mm of Mercury for 59 minutes total tourniquet time. ESTIMATED BLOOD LOSS: Less than 10 cc. MATERIALS: 2-0 Vicryl, 4-0 Monocryl, 3-0 Nylon. INJECTABLES: See anesthesia note for details. INDICATION FOR PROCEDURE: Jonathan is a very pleasant 35 year-old male who presented to my service on referral from the orthopedic clinic for pain of the right ankle. The patient had failed multiple conservative therapies for treatment of this issue. However, an MRI was obtained demonstrating significant inflammation surrounding an os trigonum as well as some tenosynovitis within the flexor hallucis longus tendon sheath. The patient indicates that he has tried multiple methods of conservative therapy which have all failed at this time. He was willing to proceed with surgical intervention at the time of consultation. The patient has been given all risks, complications and benefits of the surgical procedure at the time of consultation including but not limited to surgical wound dehiscence, poor wound healing, nonwound healing, failure of surgical intervention, possibility of continued pain and need for re-intervention at that time. He understands this and wishes to proceed with surgical intervention. He understands that he will need to stay off the foot for approximately two weeks in order to allow for the incision to heal and swelling to subside. It is with this he decided to proceed with surgical intervention. DESCRIPTION OF PROCEDURE AND FINDINGS: The patient was intubated on the bed and a well-padded thigh tourniquet was applied to the right lower extremity. Following this the patient was sedated under general anesthesia by the anesthesia team and a popliteal block was performed as indicated in the anesthesia notes. Following this the patient was placed in prone position on the OR table. The right lower extremity was prepped and draped in the typical fashion and attention was directed to the right lower extremity. At this time marking pen was utilized to snehal out the lateral aspect of the Achilles tendon and measuring approximately 8 cm above the insertion of the Achilles tendon to insure visualization of the sural nerve in this area was observed. At this time Esmarch was utilized to exsanguinate the right leg and the tourniquet was set to 350 mm of Mercury. At this time an incision was made utilizing a 10 blade through the skin and through superficial subcutaneous layer. At this time the 10 blade was handed off and a combination of blunt and sharp dissection was utilized being careful not to violate any neurovascular structures along the way while dissecting through Kager's triangle to the posterior aspect of the talus as well as the fascial layer. At this time dissecting scissors were utilized to dissect the fascial layer and the synovium of the flexor hallucis longus came into view this was filled with hemorrhage and discolored yellow indicating tenosynovitis. This was resected out from the visualized portion of the tendon. At this time attention was then directed to the posterior aspect of the talus where the accessory os was located this was identified under fluoroscopy and with direct visualization utilizing a combination of rongeurs, blunt dissection to this and a pituitary rongeur. The os trigonum was excised in toto this was taken to the back table and measured and determined to be all that was visualized on the MRI measuring approximately 1.5 cm in length, 0.9 mm in height and 4 mm in depth, this was passed off the field and sent for pathological assessment. At this time attention was then directed to the right ankle once more where copious amounts of sterile saline were utilized to flush the surgical site. Bone fragments were excised. The remaining surface of the bone was then planed with an oscillating mariama and insured to be smooth to the touch and general range of motion was applied insuring that no moving structures were impinged or irritated by any prominences. These were all smooth. Once again copious amounts of sterile saline were utilized to flush this site. This was once again checked under fluoroscopy. At this time the deep edges of the incision were coapted utilizing 2-0 Vicryl and then 4-0 Monocryl was utilized to coapt the subcutaneous skin edges and 3-0 Nylon in a horizontal mattress-type fashion was applied to susie the skin edges while there was tension being applied to the plantar aspect of the foot to prevent contracture. At this time the tourniquet was released. Total tourniquet time was 59 minutes. A dressing consisting of Betadine, Adaptic, 4x4, Kerlix, 4 inch and 6 inch SONNY lightly applied to the right lower extremity. CAM boot was applied in the OR to the right lower extremity. The patient was reversed from anesthesia and returned to the postoperative anesthesia care unit with vital signs stable and vascular status intact. The patient handled the anesthesia as well as the procedure without complications. Postoperative orders as indicated in the patient's chart.
[2021-04-08 12:37] VITALS: PULSE 79; O2SAT 94
[2021-04-08 13:16] VITALS: BP 148/64
--- NOTE | 2021-04-12 09:28 | XRAY ---
3 minutes and 43 seconds of fluoroscopy was used in surgery for a right ankle os trigonum excision and flexor hallucis longus tenosynovectomy.
== END 2021-04-08 12:15 | disposition home or self-care (01) ==
LOC: SDC 06:45
PROVIDERS: ATTEND Podiatrist Foot & Ankle Surgery
DX: M65.871 Other synovitis and tenosynovitis, right ankle and foot (principal); M25.871 Other specified joint disorders, right ankle and foot; Q68.8 Other specified congenital musculoskeletal deformities; M25.571 Pain in right ankle and joints of right foot
CPT/HCPCS: 27680; 28120; 73620; 76000; 76937; J0171; J0690; J1100; J1885; J2250; J2405; J2704; J2795; J3010

== ENCOUNTER 2024-01-18 13:59 | Emergency (ER) | payer BC, OTHER ==
[2024-01-18 14:16] VITALS: BP 140/86; RESP 17; TEMP 98.4
--- NOTE | 2024-01-18 14:29 | XRAY ---
Indication: Pain and swelling following fall. Comparison: March 13, 2023 3 view left ankle demonstrates new anterolateral soft tissue swelling. No other bony, articular, or soft tissue abnormalities.
--- NOTE | 2024-01-18 14:49 | ERPHSYRPT ---
- History of Present Illness Time Seen by Provider: 01/18/24 14:05 Source: patient, family Exam Limitations: no limitations Patient Subjective Stated Complaint: C/O left ankle injury. Patient states he thinks his ankle just gave out at home and he fell. He heard a pop. Here for ankle pain and swelling. Triage Nursing Assessment: Patient brought back to the ER in a W/C. He is alert and oriented. He was able to transfer self from chair to bed on RLE only; LLE did not touch the floor. Right ankle is swollen and tender. No bruising or skin alterations noted at this time. Pedal pulse present. Physician History: Patient is a 38-year-old white male who was walking downstairs when he felt a twist in his left ankle and heard a pop. He presents with a complaint of pain and marked swelling of the left ankle especially on the lateral malleolus.He denies any other injury or pain. Method of Injury: fell, twisted Occurred: just prior to arrival Quality: aching, throbbing Severity of Pain-Max: severe Severity of Pain-Current: moderate Lower Extremities Pain: ankle: left Modifying Factors: Improves With: nothing Associated Symptoms: unable to bear weight, snapping sensation, popping sensation Allergies/Adverse Reactions: No Known Drug Allergies Allergy (Verified 01/18/24 14:08) Hx Tetanus, Diphtheria Vaccination/Date Given: Yes Hx Influenza Vaccination/Date Given: Yes Hx Pneumococcal Vaccination/Date Given: No Immunizations Up to Date: Yes Travel Risk - International Travel Have you traveled outside of the country in past 3 weeks: No - Emerging Infectious Disease Are you exhibiting symptoms associated with any current EIDs: No - Review of Systems Constitutional: No Fever, No Chills Eyes: No Symptoms Ears, Nose, & Throat: No Symptoms Respiratory: No Cough, No Dyspnea Cardiac: No Chest Pain, No Edema, No Syncope Abdominal/Gastrointestinal: No Abdominal Pain, No Nausea, No Vomiting, No Diarrhea Genitourinary Symptoms: No Dysuria Musculoskeletal: Joint Pain, Joint Swelling, No Back Pain, No Neck Pain Skin: No Rash Neurological: No Dizziness, No Focal Weakness, No Sensory Changes Psychological: No Symptoms Endocrine: No Symptoms All Other Systems: Reviewed and Negative - Past Medical History Pertinent Past Medical History: Yes Neurological History: No Pertinent History ENT History: No Pertinent History Cardiac History: Hypertension Respiratory History: No Pertinent History Endocrine Medical History: No Pertinent History Musculoskeletal History: No Pertinent History GI Medical History: Gallbladder Disease History: No Pertinent History Psycho-Social History: No Pertinent History Male Reproductive Disorders: No Pertinent History Other Medical History: SX HX: ABOVE MENTIONED SURGERY, CHOLECYSTECTOMY 2019 - Past Surgical History Past Surgical History: Yes Neuro Surgical History: No Pertinent History Cardiac: No Pertinent History Respiratory: No Pertinent History Gastrointestinal: Cholecystectomy Genitourinary: No Pertinent History Musculoskeletal: No Pertinent History Male Surgical History: No Pertinent History Other Surgical History: EGD,veins stripped lower legs - Social History Smoking Status: Never smoker Exposure to second hand smoke: No Drug Use: none Patient Lives Alone: No - Nursing Vital Signs Nursing Vital Signs: Initial Vital Signs Temperature 98.4 F 01/18/24 14:05 Pulse Rate 91 H 01/18/24 14:05 Respiratory Rate 17 01/18/24 14:05 Blood Pressure 140/86 01/18/24 14:05 O2 Sat by Pulse Oximetry 93 L 01/18/24 14:05 Pain Scale Pain Intensity 8 - Physical Exam General Appearance: mild distress, alert Eyes, Ears, Nose, Throat Exam: moist mucous membranes Neck Exam: non-tender, supple Cardiovascular/Respiratory Exam: chest non-tender, normal breath sounds, regular rate/rhythm, no respiratory distress Gastrointestinal/Abdominal Exam: non-tender, guarding Back Exam: normal inspection, No vertebral tenderness Hips Exam: bilateral: non-tender, normal inspection, normal range of motion Legs Exam: bilateral leg: non-tender, normal inspection, normal range of motion Knees Exam: bilateral knee: non-tender, normal inspection, normal range of motion Ankle Exam: left ankle: bone tenderness, joint effusion, limited range of motion, pain, soft tissue tenderness, swelling Foot Exam: bilateral foot: non-tender, normal inspection, normal range of motion Neuro/Tendon Exam: normal sensation, normal motor functions Mental Status Exam: alert, oriented x 3, cooperative Skin Exam: normal color, warm, dry SpO2 Interpretation: normal SpO2: 93 O2 Delivery: Room Air Procedures - Splinting Time of Procedure: 14:48 Location of Splint: Left, Ankle Type of Splint: Other (Crutches) Splint Applied By: ED Nurse Pre-Proc Neuro Vasc Exam: normal Post-Proc Neuro Vasc Exam: neurovascular intact - Course Nursing assessment & vital signs reviewed: Yes - Radiology Exams Left Ankle X-ray Interpretation: Reviewed by me Ordered Tests: Active Orders 24 hr Category Date Time Status ANKLE (3 VIEWS) Stat Exams 01/18/24 14:04 Completed - Progress Progress: improved Medical Desision Making - Diagnostic Testing Diagnostic test were ordered, analyzed, and reviewed by me: Yes Radiological Interpretation: Reviewed by me - Risk of complications Minimal Risk: Minimal risk of morbidity - Departure Departure Disposition: Home Clinical Impression: Left ankle sprain Condition: Stable Critical Care Time: No Referrals: KRISTEN RAMIREZ MD [Primary Care Provider] - Follow up/PCP as directed Instructions: Ankle Sprain ED Prescriptions: Hydrocodone/Acetaminophen [Hydrocodone-Acetamin 5-325 mg] 1 tab PO Q6HPRN PRN 3 Days #12 tablet MDD 4 PRN Reason: Pain
[2024-01-18] MEDS ORDERED: NORCO 10-325 MG ONE (14:57)
[2024-01-18] MEDS: NORCO 10-325 MG PO PRN (15:01)
[2024-01-18 15:07] VITALS: PULSE 86; O2SAT 94
== END 2024-01-18 15:08 | disposition home or self-care (01) ==
LOC: ED 13:59
DX: S93.402A Sprain of unspecified ligament of left ankle, initial encounter (principal); X50.0XXA Overexertion from strenuous movement or load, initial encounter; I10 Essential (primary) hypertension; Z79.891 Long term (current) use of opiate analgesic
CPT/HCPCS: 73610; 99283; A9270-GY

== ENCOUNTER 2025-08-02 20:10 | Emergency (ER) | payer BC ==
--- NOTE | 2025-08-02 20:31 | ERPHSYRPT ---
- History of Present Illness Time Seen by Provider: 08/02/25 20:15 Source: patient Exam Limitations: no limitations Physician History: 39-year-old male presents to the emergency room complaining of pain to his left finger patient reports he started his second digit on the combine when he got stuck and jammed on the denies any other injuries patient is right-hand dominant patient is now in ED for further eval patient reports tetanus shot within 2 years Occurred: just prior to arrival Method of Injury: unknown Quality: constant Severity of Pain-Max: mild Severity of Pain-Current: mild Extremities Pain Location: 2nd finger: left Modifying Factors: Improves With: nothing Associated Symptoms: none Allergies/Adverse Reactions: No Known Drug Allergies Allergy (Verified 01/18/24 14:08) Hx Tetanus, Diphtheria Vaccination/Date Given: Yes Hx Influenza Vaccination/Date Given: Yes Hx Pneumococcal Vaccination/Date Given: No Travel Risk - Emerging Infectious Disease Are you exhibiting symptoms associated with any current EIDs: No - Review of Systems Constitutional: No Fever, No Chills Eyes: No Symptoms Ears, Nose, & Throat: No Symptoms Respiratory: No Cough, No Dyspnea Cardiac: No Chest Pain, No Edema, No Syncope Abdominal/Gastrointestinal: No Abdominal Pain, No Nausea, No Vomiting, No Diarrhea Genitourinary Symptoms: No Dysuria Musculoskeletal: No Back Pain, No Neck Pain Skin: No Rash Neurological: No Dizziness, No Focal Weakness, No Sensory Changes Psychological: No Symptoms Endocrine: No Symptoms All Other Systems: Reviewed and Negative - Past Medical History Pertinent Past Medical History: Yes Neurological History: No Pertinent History ENT History: No Pertinent History Cardiac History: Hypertension Respiratory History: No Pertinent History Endocrine Medical History: No Pertinent History Musculoskeletal History: No Pertinent History GI Medical History: Gallbladder Disease History: No Pertinent History Psycho-Social History: No Pertinent History Male Reproductive Disorders: No Pertinent History Other Medical History: SX HX: ABOVE MENTIONED SURGERY, CHOLECYSTECTOMY 2020 - Past Surgical History Past Surgical History: Yes Neuro Surgical History: No Pertinent History Cardiac: No Pertinent History Respiratory: No Pertinent History Gastrointestinal: Cholecystectomy Genitourinary: No Pertinent History Musculoskeletal: No Pertinent History Male Surgical History: No Pertinent History Other Surgical History: EGD,veins stripped lower legs - Social History Smoking Status: Never smoker Exposure to second hand smoke: No Drug Use: none Patient Lives Alone: No - Social Determinants of Health Will the patient participate in the screening: Yes Do you worry about a steady place to live?: No In the past 12 months,have you had to go without utilities?: No Transportation Issues: No Has anyone in your support network made you feel unsafe?: No Have you or anyone in your house had to go w/o enough food: No - Physical Exam General Appearance: alert Eyes, Ears, Nose, Throat Exam: moist mucous membranes Neck Exam: non-tender, supple Cardiovascular/Respiratory Exam: chest non-tender, normal breath sounds, regular rate/rhythm, no respiratory distress Abdominal Exam: non-tender, No guarding Back Exam: normal inspection, No vertebral tenderness Hand Exam: laceration (Circumferential laceration to the second digit of the left hand) Neuro/Tendon Exam: normal sensation, normal motor functions Mental Status Exam: alert, oriented x 3, cooperative Skin Exam: normal color, warm, dry Procedures - Laceration/Wound Repair Left Upper Dorsal Finger Time of Procedure: 20:32 Wound Location: Left Wound Length (cm): 1.5 Wound's Depth, Shape: superficial Wound Explored: clean Irrigated: Yes Wound Repaired With: Dermabond Layer Closure?: No Sterile Dressing Applied?: Yes Splint Applied?: Yes Sling Applied?: No - Departure Departure Disposition: Home Clinical Impression: Finger laceration Qualifiers: Encounter type: initial encounter Finger: unspecified finger Damage to nail status: without damage Foreign body presence: without foreign body Laterality: left Qualified Code(s): S61.219A - Laceration without foreign body of unspecified finger without damage to nail, initial encounter Condition: Stable Critical Care Time: No Referrals: KRISTEN RAMIREZ MD [Primary Care Provider, [facility]] - Follow up/PCP as directed Instructions: Skin glue - ED discharge instructions, Skin glue for minor cuts, Taking care of cuts, scrapes, and puncture wounds
[2025-08-02 20:33] VITALS: RESP 18
[2025-08-02 21:18] VITALS: BP 141/93; PULSE 70; O2SAT 98
== END 2025-08-02 21:18 | disposition home or self-care (01) ==
LOC: ED 20:10
DX: S61.211A Laceration without foreign body of left index finger without damage to nail, initial encounter (principal); W30.0XXA Contact with combine harvester, initial encounter; I10 Essential (primary) hypertension